=== PATIENT | female | born 1980 | race Caucasian/White ===

== ENCOUNTER 2018-08-26 11:15 | Outpatient (CLI) | payer MEDICAID ==
[2018-08-26 18:04] LABS: BASOPHILS # (AUTO) 0.1 10^3/uL (0.0-0.1); BASOPHILS % (AUTO) 1.1 %; EOSINOPHILS # (AUTO) 0.2 10^3/uL (0.0-0.7); EOSINOPHILS % (AUTO) 2.3 %; HGB - HEMOGLOBIN 14.9 g/dL (12.0-16.0); LYMPHOCYTES # (AUTO) 1.8 10^3/uL (1.5-3.5); LYMPHOCYTES % (AUTO) 27.2 %; MEAN CORPUSCULAR HEMOGLOBIN 30.5 pg (27.0-31.0); MEAN CORPUSCULAR HGB CONC 33.6 g/dL (32.0-36.0); MEAN CORPUSCULAR VOLUME 90.7 fL (81.0-99.0); MEAN PLATELET VOLUME 8.8 fL (7.9-10.8); MONOCYTES # (AUTO) 0.5 10^3/uL (0.0-1.0); MONOCYTES % (AUTO) 6.9 %; NEUTROPHILS # (AUTO) 4.1 10^3/uL (1.5-6.6); NEUTROPHILS % (AUTO) 62.5 %; PLT - PLATELET COUNT 243 10^3/uL (130-450); RED BLOOD COUNT 4.88 10^6/uL (4.20-5.40); RED CELL DISTRIBUTION WIDTH 13.6 % (12.0-15.0); WHITE BLOOD COUNT 6.6 x10^3/uL (4.8-10.8)
[2018-08-26 18:06] LABS: ALBUMIN 4.5 g/dL (3.2-5.5); ALBUMIN/GLOBULIN RATIO 1.4 (1.0-2.2); BILIRUBIN,TOTAL 0.4 mg/dL (0.2-1.0); CALCIUM 9.2 mg/dL (8.5-10.3); CREATININE 0.7 mg/dL (0.4-1.0); TOTAL PROTEIN 7.8 g/dL (6.7-8.2)
== END 2018-08-26 11:16 | disposition home or self-care (01) ==
LOC: LAB.F 11:15
PROVIDERS: ATTEND Physician Assistant Medical
DX: Z51.81 Encounter for therapeutic drug level monitoring (principal); Z30.9 Encounter for contraceptive management, unspecified
CPT/HCPCS: 36415; 80053; 85025

== ENCOUNTER 2023-11-19 10:31 | Emergency (ER) | payer SELFPAY ==
[2023-11-19 11:09] VITALS: O2SAT 98
[2023-11-19 11:50] LABS: RAPID STREP SCREEN POSITIVE (Negative)
[2023-11-19 12:37] LABS: B. PARAPERTUSSIS- RESP PCR PAN NOT DETECTED; B. PERTUSSIS- RESP PCR PANEL NOT DETECTED; C. PNEUMONIAE- RESP PCR PANEL NOT DETECTED; CORONAVIRUS 229E-RESP PCR NOT DETECTED; CORONAVIRUS HKU1-RESP PCR NOT DETECTED; CORONAVIRUS NL63-RESP PCR NOT DETECTED; CORONAVIRUS OC43-RESP PCR NOT DETECTED; HUMAN METAPNEUMOVIRUS NOT DETECTED; INFLUENZA A- RESP PCR PANEL NOT DETECTED; INFLUENZA B - RESP PCR PANEL NOT DETECTED; M. PNEUMONIAE- RESP PCR PANEL NOT DETECTED; PARAINFLUENZA VIRUS 1 NOT DETECTED; PARAINFLUENZA VIRUS 2 NOT DETECTED; PARAINFLUENZA VIRUS 3 NOT DETECTED; PARAINFLUENZA VIRUS 4 NOT DETECTED; RHINOVIRUS/ENTEROVIRUS NOT DETECTED; RSV- RESP PCR PANEL NOT DETECTED; SARS-CoV-2 -RESP PCR PANEL NOT DETECTED
--- NOTE | 2023-11-19 13:13 | ED Physician Documentation ---
PD HPI URI - Stated complaint Stated Complaint: SORE THROAT,[place],GEN WEAKNESS - Chief complaint Chief Complaint: Heent - History obtained from History obtained from: Patient - History of Present Illness Timing - onset: How many days ago (5) Timing duration: Days (5) Timing details: Gradual onset, Still present Associated symptoms: Fever, Chills, Sore throat, Swollen nodes. No: Nasal congestion, Dry cough PD PAST MEDICAL HISTORY - Past Medical History Past Medical History: No Cardiovascular: None Respiratory: None Neuro: None Endocrine/Autoimmune: None GI: None METALLURGIST PROCESS: None : None HEENT: None Psych: None Musculoskeletal: None Derm: None - Past Surgical History Past Surgical History: Yes /METALLURGIST PROCESS: section - Present Medications Home Medications: Ambulatory Orders Medication Instructions Recorded Confirmed Penicillin V Potassium 1,000 mg PO BID 7 Days #28 tablet 11/19/23 - Allergies Allergies/Adverse Reactions: Allergies Allergy/AdvReac Type Severity Reaction Status Date / Time No Known Drug Allergies Allergy Verified 11/19/23 11:09 - Social History Does the pt smoke?: Yes Smoking Status: Current every day smoker Does the pt drink ETOH?: No Does the pt have substance abuse?: No - Immunizations Immunizations are current?: Yes - POLST Patient has POLST: No PD ED PE NORMAL - Vitals Vital signs reviewed: Yes - General General: Alert and oriented X 3, Well developed/nourished, Other (appears in pain with swallowing. ) - HEENT HEENT: Ears normal, Moist mucous membranes. No: Pharynx benign (tonsils swollen with exudate. ) Results - Vitals Vitals: Oxygen O2 Source Room air - Labs Labs: Laboratory Tests 11/19/23 11/19/23 11:00 11:00 Nasal Adenovirus (PCR) NOT DETECTED Nasal B. parapertussis DNA (PCR) NOT DETECTED Nasal Coronavir 229E PCR NOT DETECTED Nasal Coronavir HKU1 PCR NOT DETECTED Nasal Coronavir NL63 PCR NOT DETECTED Nasal Coronavir OC43 PCR NOT DETECTED Nasal Enterovir/Rhinovir PCR NOT DETECTED Nasal Influenza B PCR NOT DETECTED Nasal Influenza A PCR NOT DETECTED Nasal Parainfluen 1 PCR NOT DETECTED Nasal Parainfluen 2 PCR NOT DETECTED Nasal Parainfluen 3 PCR NOT DETECTED Nasal Parainfluen 4 PCR NOT DETECTED Nasal RSV (PCR) NOT DETECTED Nasal B.pertussis DNA PCR NOT DETECTED Nasal C.pneumoniae (PCR) NOT DETECTED Arpan Human Metapneumo PCR NOT DETECTED Nasal M.pneumoniae (PCR) NOT DETECTED Nasal SARS-CoV-2 (PCR) NOT DETECTED Group A Strep Rapid POSITIVE H PD Medical Decision Making - ED course Complexity details: reviewed results (positive strep test. Negative viral panel), considered differential (symptoms confined to throat. Has swelling and exudative tonsils. 5 days of symptoms. strep test positive. ), d/w patient Departure - Departure Disposition: 01 Home, Self Care Clinical Impression: Acute streptococcal pharyngitis Condition: Stable Record reviewed to determine appropriate education?: Yes Instructions: ED Strep Pharyngitis Conf Prescriptions: Penicillin V Potassium 1,000 mg PO BID 7 Days #28 tablet Comments: Your viral panel test is negative for the major viruses. Your strep test is positive for group A strep. We can treat this with penicillin antibiotic over the next week. Typically there is a good improvement in the first day or 2 but may take 3 to 5 days to really resolve. Continue with local therapy in the throat such as benzocaine (Cepacol or Chlo raseptic) or liquid Benadryl has a bit of a numbing effect as well so can be held in the throat and then swallowed. Tylenol and/or ibuprofen can be used to help with pains and fevers. Again I would anticipate a good improvement over even the first day or so once on the antibiotics. I sent your prescriptions to [facility] pharmacy in [place]. You are also given a dose of a steroid anti-inflammatory here to help initiate some of the decreased and inflammation and will often help the pain quite a bit in the first day as well. Forms: PCP List Discharge Date/Time: 11/19/23 13:36
[2023-11-19] MEDS: diphenhydrAMINE ELIXIR 25 MG/10 ML UDC PO STA (13:27)
[2023-11-19] MEDS: dexAMETHasone 4 MG TABLET PO STA (13:27)
[2023-11-19] MEDS: PENICILLIN VK 250 MG TABLET PO STA (13:27)
[2023-11-19 13:42] VITALS: BP 101/57
== END 2023-11-19 13:36 | disposition home or self-care (01) ==
LOC: ED 10:31
DX: J02.0 Streptococcal pharyngitis (principal); F17.200 Nicotine dependence, unspecified, uncomplicated
CPT/HCPCS: 87430; 87633; 99283; A9270; J8540

== ENCOUNTER 2024-01-10 14:01 | Emergency (ER) | payer MEDICAID ==
[2024-01-10 14:21] VITALS: O2SAT 99
--- NOTE | 2024-01-10 15:01 | ED Physician Documentation ---
History of Present Illness - Stated complaint Stated Complaint: SKIN RASH ALL OVER - Chief complaint Chief Complaint: General - History obtained from History obtained from: Patient - Additonal information Additional information: She developed an itchy rash mostly on the anterior neck, trunk, arms and legs but sparing the palms and soles since yesterday. Cause is unknown. Had a recent URI with cough and the cough is persistent. No fevers or chills. No sick contacts or new exposures. No recent travel. PD PAST MEDICAL HISTORY - Past Medical History Cardiovascular: None Respiratory: None Neuro: None Endocrine/Autoimmune: None GI: None AUTHORIZATION REP: None : None HEENT: None Psych: None Musculoskeletal: None Derm: None - Past Surgical History Past Surgical History: Yes /AUTHORIZATION REP: section - Present Medications Home Medications: Ambulatory Orders Medication Instructions Recorded Confirmed Penicillin V Potassium 1,000 mg PO BID 7 Days #28 tablet 11/19/23 Benzonatate 1 cap PO TID PRN #15 cap 01/10/24 Cetirizine [ZyrTEC] 10 mg PO DAILY #10 tablet 01/10/24 predniSONE [Deltasone] 60 mg PO DAILY 5 Days #15 tablet 01/10/24 - Allergies Allergies/Adverse Reactions: Allergies Allergy/AdvReac Type Severity Reaction Status Date / Time No Known Drug Allergies Allergy Verified 01/10/24 14:07 - Social History Does the pt smoke?: Yes Smoking Status: Current every day smoker Does the pt drink ETOH?: No Does the pt have substance abuse?: No - Immunizations Immunizations are current?: Yes - POLST Patient has POLST: No PD ED PE NORMAL - Vitals Vital signs reviewed: Yes - General General: Alert and oriented X 3, No acute distress - Derm Derm: Other (She has hives on the neck, trunk, and extremities that spared the palms, soles and there are no oral lesions.) - Neuro Neuro: Alert and oriented X 3, Normal speech Results - Vitals Vitals: Vital Signs - 24 hr 01/10/24 14:05 Temperature 36.7 C Heart Rate 85 Respiratory 15 Rate Blood Pressure 121/65 O2 Saturation 99 Oxygen O2 Source Room air Departure - Departure Disposition: 01 Home, Self Care Clinical Impression: Hives Condition: Good Record reviewed to determine appropriate education?: Yes Instructions: ED Urticaria Prescriptions: Benzonatate 1 cap PO TID PRN #15 cap PRN Reason: Cough predniSONE [Deltasone] 60 mg PO DAILY 5 Days #15 tablet Cetirizine [ZyrTEC] 10 mg PO DAILY #10 tablet Comments: I sent your prescription electronically to the [facility] in [place]. Looks like today you should have hives and the medicines should help a lot. If it becomes a recurrent issue, follow-up with your primary care physician for consideration for allergy referral. Return for new or worsening symptoms.
[2024-01-10] MEDS: CETIRIZINE 10 MG TABLET PO STA (15:05)
[2024-01-10] MEDS: CHERRY SYRUP 10 ML UDC PO ONE (15:05)
[2024-01-10] MEDS: DEXAMETHASONE 10 MG/ML VIAL PO STA (15:05)
[2024-01-10 15:14] VITALS: BP 118/62
== END 2024-01-10 15:09 | disposition home or self-care (01) ==
LOC: ED 14:01
DX: L50.9 Urticaria, unspecified (principal); F17.200 Nicotine dependence, unspecified, uncomplicated
CPT/HCPCS: 99283; A9270